=== PATIENT | male | born 1975 | race Caucasian/White ===

== ENCOUNTER → 2020-06-26 | Outpatient (CLI) | payer OTHER | LOC: KOH-I 14:30 | DX: M25.551 Pain in right hip (principal); M25.552 Pain in left hip; M70.61 Trochanteric bursitis, right hip; R60.0 Localized edema; M70.62 Trochanteric bursitis, left hip; M76.02 Gluteal tendinitis, left hip | CPT/HCPCS: 73522; 73721 ==

== ENCOUNTER → 2020-07-19 | Outpatient (CLI) | payer OTHER | LOC: CT 10:54 | DX: M25.551 Pain in right hip (principal); Z53.9 Procedure and treatment not carried out, unspecified reason ==

== ENCOUNTER → 2020-07-23 | Outpatient (CLI) | payer OTHER | LOC: NM 08:10 | DX: M25.551 Pain in right hip (principal); M25.552 Pain in left hip; R93.7 Abnormal findings on diagnostic imaging of other parts of musculoskeletal system | CPT/HCPCS: 78300; A9503 ==

== ENCOUNTER → 2020-08-13 | Outpatient (CLI) | payer OTHER | LOC: KOH-I 08-06 09:30 → EMI 16:38 → KOH-I 08-16 08:00 | DX: R25.1 Tremor, unspecified (principal) | CPT/HCPCS: 70551 ==